=== PATIENT | male | born 1985 | race Caucasian/White ===

== ENCOUNTER 2018-03-31 21:28 | Emergency (ER) | payer MEDICAID ==
[~2018-03-31] VITALS: Ht 180.3 cm; Wt 88.0 kg
[2018-03-31 21:34] VITALS: BP_SYST 144
[2018-04-01] MEDS ORDERED: KETOROLAC TROMETHAMINE 60 MG/2 ML VIAL IM ONE (00:30)
[2018-04-01 00:52] VITALS: BP_SYST 138
== END 2018-04-01 00:52 | disposition home or self-care (01) ==
LOC: SED 21:28
DX: J06.9 Acute upper respiratory infection, unspecified (principal); H92.03 Otalgia, bilateral; R05 Cough; R03.0 Elevated blood-pressure reading, without diagnosis of hypertension; F17.210 Nicotine dependence, cigarettes, uncomplicated
CPT/HCPCS: 96372; 99283; J1885

== ENCOUNTER 2018-04-14 15:21 | Emergency (ER) | payer MEDICAID ==
[~2018-04-14] VITALS: Ht 180.3 cm; Wt 88.0 kg
[2018-04-14 15:21] VITALS: BP_SYST 146
[2018-04-14 16:15] VITALS: BP_SYST 122
[2018-04-14] MEDS ORDERED: MUPIROCIN 2% TOPICAL OINTMENT 22 GM TP SCH (21:00)
== END 2018-04-14 16:15 | disposition home or self-care (01) ==
LOC: SED 15:21
DX: Z48.01 Encounter for change or removal of surgical wound dressing (principal); R03.0 Elevated blood-pressure reading, without diagnosis of hypertension
CPT/HCPCS: 99281

== ENCOUNTER 2018-12-10 13:44 | Emergency (ER) | payer MEDICAID ==
[~2018-12-10] VITALS: Ht 180.3 cm; Wt 81.6 kg
[2018-12-10 13:45] VITALS: BP_SYST 148
--- NOTE | 2018-12-10 13:45 | NUR ---
BROUGHT BACK TO BED #6 AND TRIAGED. REPORT GIVEN TO SHY
--- NOTE | 2018-12-10 13:55 | NUR ---
pt arrives with multiple bug bites over shan feet, left arm, and a cough. Pt is currently afebrile. No signs of dsitress at the moment. Will continue to monitor.
--- NOTE | 2018-12-10 13:58 | NUR ---
ER at bedside examining patient.
--- NOTE | 2018-12-10 14:12 | NUR ---
pt getting labs drawn at the bedside.
[2018-12-10 14:19] LABS: BASOPHILS % (AUTO) 0.6 % (0.0-2.0); EOSINOPHILS # (AUTO) 0.1 K/uL (0.0-0.4); EOSINOPHILS % (AUTO) 1.1 % (0.0-4.0); HEMATOCRIT 44.5 % (36-54); HEMOGLOBIN 15.4 g/dL (14.0-18.0); LYMPHOCYTES # (AUTO) 2.1 K/uL (1.0-5.5); LYMPHOCYTES % (AUTO) 27.6 % (20.5-51.5); MEAN CORPUSCULAR HEMOGLOBIN 30 pg (27-31); MEAN CORPUSCULAR HGB CONC 35 % (32-36); MEAN CORPUSCULAR VOLUME 87 fL (79.0-98.0); MONOCYTES # (AUTO) 0.9 K/uL (0.0-1.0); MONOCYTES % (AUTO) 11.4 % (1.7-9.3); NEUTROPHILS # (AUTO) 4.4 K/uL (1.8-7.7); NEUTROPHILS % (AUTO) 59.3 % (40.0-70.0); PLATELET COUNT (AUTO) 239 K/uL (130-430); RED BLOOD CELL COUNT(AUTO) 5.13 MIL/uL (4.2-6.2); RED CELL DISTRIBUTION WIDTH 12.8 % (9.0-15.0); WHITE BLOOD COUNT (AUTO) 7.5 K/uL (4.8-10.8)
--- NOTE | 2018-12-10 14:20 | NUR ---
pt getting a CXR at the bedside.
[2018-12-10 14:37] LABS: INR 0.9 (0.80-1.20); PROTHROMBIN TIME 9.4 SECS (9.5-12.5)
[2018-12-10 14:39] LABS: CREATININE 1.06 mg/dL (0.55-1.30); POTASSIUM 3.8 mmol/L (3.5-5.1)
[2018-12-10 14:45] LABS: ALBUMIN 3.9 g/dL (3.4-4.8); C-REACTIVE PROTEIN QUANT 1.9 mg/dL (0-0.5); TOTAL BILIRUBIN 0.3 mg/dL (0.0-1.0)
[2018-12-10 15:41] VITALS: BP_SYST 148
--- NOTE | 2018-12-10 15:42 | NUR ---
Patient given written and verbal discharge instructions and verbalizes understanding. ER MD discussed with patient the results and treatment provided. Patient in stable condition. ID arm band removed. Rx of clindamycin 300mg, Bactracin, Sudafed 30mg given. Patient educated on pain management and to follow up with PMD. Pain Scale 0/10.Opportunity for questions provided and answered. Medication side effect fact sheet provided.
== END 2018-12-10 15:42 | disposition home or self-care (01) ==
LOC: SED 13:44
DX: S80.862A Insect bite (nonvenomous), left lower leg, initial encounter (principal); S80.861A Insect bite (nonvenomous), right lower leg, initial encounter; S40.862A Insect bite (nonvenomous) of left upper arm, initial encounter; S40.861A Insect bite (nonvenomous) of right upper arm, initial encounter; R05 Cough; W57.XXXA Bitten or stung by nonvenomous insect and other nonvenomous arthropods, initial encounter; Y93.89 Activity, other specified; Y92.89 Other specified places as the place of occurrence of the external cause; Y99.8 Other external cause status
CPT/HCPCS: 36415; 71045; 80053; 83605; 85025; 85610-TC; 85730-TC; 86140; 99284